=== PATIENT | female | born 1945 | race Caucasian/White ===

== ENCOUNTER → 2020-04-13 | Outpatient (CLI) | payer OTHER ==
--- NOTE | 2020-04-15 08:18 | REP ---
INDICATION: UNSPECIFIED OVARIAN CYST, LEFT SIDE COMPARISON: None. TECHNIQUE: Transabdominal pelvic ultrasound followed by transvaginal examination for better evaluation of the endometrium and adnexa with color Doppler evaluation of the ovaries. FINDINGS: Bladder is unremarkable and measures 9.2 x 5.9 x 5.1 cm. Normal anteverted uterus measures 3.8 x 2.5 x 4.5 cm. The endometrial complex measures 3.2 mm thickness. Incidental small myometrial echogenic foci suggest chronic punctate calcifications. Right ovary is not identified on either transabdominal or transvaginal imaging. Left ovary measures 4.5 x 2.9 x 4.7 cm and includes 3.6 x 3.5 x 2.8 cm complex cyst with layering debris; R I = 0.72. No pelvic fluid or adnexal mass lesion IMPRESSION: 1. 3.6 cm complex left ovarian cyst is relatively nonspecific in appearance. No torsion, pelvic fluid or adnexal mass lesion identified. Right ovary not visualized. 2. Normal age-appropriate uterus. <Electronically signed by Ayo Mas > 04/15/20 0827
== END ==
LOC: M RAD 14:17
PROVIDERS: ATTEND Obstetrics & Gynecology
DX: N83.202 Unspecified ovarian cyst, left side (principal)

== ENCOUNTER → 2022-06-04 | Outpatient (CLI) | payer OTHER ==
[~2022-06-04] MED LIST: LISI20TA33 PO; SYNT137T7 PO
== END ==
LOC: M ONCR 13:50
PROVIDERS: ATTEND General Practice
DX: D32.0 Benign neoplasm of cerebral meninges (principal); R93.89 Abnormal findings on diagnostic imaging of other specified body structures; R51.9 Headache, unspecified; I10 Essential (primary) hypertension; E03.9 Hypothyroidism, unspecified; Z79.890 Hormone replacement therapy; Z79.899 Other long term (current) drug therapy; Z87.891 Personal history of nicotine dependence

== ENCOUNTER → 2022-08-26 | Outpatient (CLI) | payer OTHER ==
[~2022-08-26] MED LIST changes: +PROHANCE 279.3MG/ML 5ML VIAL As Ordered ONE
[2022-08-26 11:26] LABS: ALBUMIN 3.8 G/DL (3.2-5.2); CALCIUM LEVEL 9.4 MG/DL (8.3-10.6); CREATININE FOR GFR 1.16 MG/DL (0.55-1.30); GLOMERULAR FILTRATION RATE 48.5 (>39); POTASSIUM SERUM 4.5 MMOL/L (3.5-5.1); TOTAL PROTEIN 6.8 G/DL (5.7-8.2)
== END ==
LOC: M RAD 10:21 → M LAB 10:21
PROVIDERS: ATTEND General Practice
DX: D32.0 Benign neoplasm of cerebral meninges (principal)
CPT/HCPCS: 36415; 70551; 80053; A9576